=== PATIENT | male | born 1965 | race Caucasian/White ===

== ENCOUNTER 2016-10-23 17:28 | Inpatient (IN) ==
[2016-10-23] MEDS ORDERED: ASPIRIN PO STA (17:46)
[2016-10-23 18:05] LABS: MANUAL DIFF NEEDED? NO
[2016-10-23 18:08] LABS: BASO% 0.2 % (0.0-0.8); EOS# 0.06 X1000 (0.0-0.7); EOS% 0.7 % (0.0-10.0); HEMATOCRIT 40.3 % (42.0-52.0); HEMOGLOBIN 14.1 g/dL (14.0-18.0); LYMPH% 19.9 % (20.5-51.1); MCH 29.1 PG (27-31); MCV 83.1 FL (81-99); MONO# 0.78 X1000 (0.11-0.59); MONO% 9.7 % (1.7-9.3); MPV 10.1 FL (7.4-10.4); NEUT% 69.5 % (42.2-75.2); PLT 244 X1000 (130-400); RBC 4.85 XMIL (4.7-6.1)
--- NOTE | 2016-10-23 18:11 | ED EKG INTERP ---
EKG Interpretation - EKG Time of EKG reading by physician:: 17:42 EKG Read and Signed by:: Lynette Montelongo EKG Interpretation (*Must complete 3 of following elements*): Abnormal ( Nonspecific ST abnormality) Rate: 116 Rhythm: Sinus tachycardia Attestation - Scribe Verification/Attestation Scribe:: Nael Kim Acting as Scribe for:: Lynette Montelongo Scribe documention review:: This chart was documented by a scribe and accurately reflects the service the provider performed and the decisions made by the provider.
[2016-10-23 18:35] LABS: INR 1.05; PROTIME 11.1 Seconds (9.2-11.7); PTT 29.9 Seconds (22.0-36.0)
[2016-10-23 18:38] LABS: ALBUMIN 4.5 g/dL (3.5-5.0); MAGNESIUM 1.9 mg/dL (1.5-2.7); POTASSIUM 3.8 mmol/L (3.5-5.1); TOTAL BILIRUBIN 0.44 mg/dL (0.20-1.00); TOTAL PROTEIN 7.1 g/dL (6.3-8.3)
[2016-10-23] MEDS ORDERED: ADENOCARD ONE (19:31)
[2016-10-23] MEDS ORDERED: NS 1,000 ML ONE (19:33)
[2016-10-23] MEDS ORDERED: CARDIZEM ONE (19:36)
[2016-10-23] MEDS ORDERED: ADENOCARD IV ONE (19:40)
[2016-10-23] MEDS ORDERED: CARDIZEM IV ONE (19:41)
--- NOTE | 2016-10-23 19:44 | ED EKG INTERP ---
EKG Interpretation - EKG Time of EKG reading by physician:: 19:31 EKG Read and Signed by:: Arnold Haynes EKG Interpretation (*Must complete 3 of following elements*): Abnormal ( Nonspecific intraventricular block) Rate: 236 Rhythm: Wide QRS tachycardia Attestation - Scribe Verification/Attestation Scribe:: Nael Kim Acting as Scribe for:: Arnold Haynes Scribxavier documention review:: This chart was documented by a scribe and accurately reflects the service the provider performed and the decisions made by the provider.
[2016-10-23] MEDS ORDERED: CARDIZEM 100 MG/NS 100 ML IV SCH (19:45)
--- NOTE | 2016-10-23 19:45 | ED EKG INTERP ---
EKG Interpretation - EKG Time of EKG reading by physician:: 19:32 EKG Read and Signed by:: Arnold Haynes EKG Interpretation (*Must complete 3 of following elements*): Abnormal ( Nonspecific T wave abnormality) Rate: 134 Rhythm: Sinus tachycardia Attestation - Scribe Verification/Attestation Scribe:: Nael Kim Acting as Scribe for:: Arnold Haynes Scribxavier documention review:: This chart was documented by a scribe and accurately reflects the service the provider performed and the decisions made by the provider.
[2016-10-23] MEDS ORDERED: LOPRESSOR 10 MG in NS 50 ML IV ONE (19:53)
[2016-10-23] MEDS ORDERED: MORPHINE IV PRN (19:55)
[2016-10-23] MEDS ORDERED: ZOFRAN IV PRN (19:55)
[2016-10-23] MEDS ORDERED: NS 1,000 ML IV ONE (19:55)
[2016-10-23] MEDS ORDERED: NS 1,000 ML IV SCH (20:00)
[2016-10-23] MEDS: LOPRESSOR PO SCH (21:57)
[2016-10-23] MEDS ORDERED: TYLENOL PO PRN (23:23)
[2016-10-23] MEDS ORDERED: AMBIEN PO PRN (23:25)
[2016-10-24] MEDS: NS 1,000 ML IV SCH ×5 (00:08→20:46)
--- NOTE | 2016-10-24 01:52 | HISTORY AND PHYSICAL ---
CHIEF COMPLAINT: Palpitations, chest pain. HISTORY OF PRESENT ILLNESS: A 51-year-old male with no medical history presenting with intermittent chest pain for the last week off and on, worse today. He felt spontaneous heart rate increasing associated with shortness of breath and chest pain which prompted his evaluation. He usually has this problem about once a month. Obviously has been increasing in frequency since he was in the hospital off and on for the last 7 days. Usually spontaneously resolves. Apparently, he has had workup before including a cardiac catheterization but he says that was 10 or 15 years ago which was negative. In the ER, he was found to have SVT in the 200s. He was given Lopressor and then started on a Cardizem drip. It spontaneously resolved. We switched him to Lopressor and he is in a sinus rhythm now. He received adenosine, Cardizem, and metoprolol. PAST MEDICAL HISTORY: Denies. PAST SURGICAL HISTORY: He has had multiple knee surgeries, TKAs, and a right shoulder repair. SOCIAL HISTORY: No tobacco or ethanol. 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 Denies alcohol or tobacco. ALLERGIES: Sulfa. FAMILY HISTORY: His father had a massive heart attack at 50, I think is . REVIEW OF SYSTEMS: Negative times 12 systems. PHYSICAL EXAMINATION: VITAL SIGNS: Blood pressure 153/109, heart rate of 99, respiratory rate 18, temperature 98.2. GENERALLY: Well-developed male in no acute distress. HEENT: Head exam was normocephalic, atraumatic. Eye exam: Pupils equal, round, reactive to light. Extraocular movements were intact. Ear, nose and throat exam: He had moist mucous membranes. NECK: Supple. CARDIOVASCULAR: Regular rate and rhythm. No murmurs, gallops, or rubs. PULMONARY: Bilateral breath sounds clear to auscultation. GASTROINTESTINAL: Soft, nontender, nondistended. Bowel sounds are positive. EXTREMITIES: No clubbing or cyanosis. LYMPHATIC: No peripheral edema. NEUROLOGICAL: Nonfocal. Cranial nerves II through XII are grossly intact. MUSCULOSKELETAL: Exam was 5/5 in all 4 extremities. LABORATORY DATA: Creatinine 1.3. ALT was mildly elevated at 52. PROBLEM LIST: This is a 51-year-old male who presented with spontaneous supraventricular tachycardia and chest pain. 1. Supraventricular tachycardia. He spontaneously resolved. We will continue on Lopressor and follow. Monitor on telemetry and trend out serial cardiac enzymes. Obtain cardiology consult. Obtain echo in the morning. Check a TSH level and follow. Hopefully can discharge in next 24 hours if he stabilizes. 2. Mild elevation in liver enzymes. We will repeat and monitor. DISPOSITION: Pending resolution of his SVT issues. Again, likely discharge in the next 24 hours.
[2016-10-24 03:45] LABS: HEMATOCRIT 38.8 % (42.0-52.0); HEMOGLOBIN 13.3 g/dL (14.0-18.0); MCH 29.1 PG (27-31); MCHC 34.3 g/dL (33-37); MCV 84.9 FL (81-99); MPV 9.9 FL (7.4-10.4); RBC 4.57 XMIL (4.7-6.1)
[2016-10-24] MEDS: LOPRESSOR PO SCH ×3 (04:12→20:46)
[2016-10-24 04:15] LABS: AGAP 12; ALKALINE PHOSPHATASE 61 U/L (32-122); BUN 10 mg/dL (8-22); CALCIUM 8.8 mg/dL (8.8-10.2); CHLORIDE 105 mmol/L (98-107); COSMO 284; DIRECT BILIRUBIN < 0.20 mg/dL (0.00-0.20); GOT 23 U/L (10-34); GPT 47 U/L (10-44); MAGNESIUM 2.2 mg/dL (1.5-2.7); SODIUM 143 mmol/L (136-145); TCO2 26 mmol/L (25-35); TOTAL PROTEIN 6.4 g/dL (6.3-8.3)
[2016-10-24] MEDS ORDERED: PNEUMOVAX 23 IM ONE (09:00)
--- NOTE | 2016-10-24 09:27 | Diag Imaging Result Document ---
PROCEDURE NAME: CHEST-2 VIEWS - 10/23/2016 TWO VIEWS OF THE CHEST: FINDINGS: The inspiration is somewhat suboptimal. The heart size and pulmonary vascularity are within normal limits, and the lungs are clear. There has been resection of the distal right clavicle since the previous study of 03/07/2015, otherwise, there has been no significant change. IMPRESSION: No evidence of acute disease.
[2016-10-24] MEDS: ASPIRIN EC PO SCH (10:06)
--- NOTE | 2016-10-24 12:33 | PROGRESS NOTE ---
DATE: 10/24/2016 SUBJECTIVE: This patient states that he is feeling better. He is not having palpitations at this moment or chest pain. He denies nausea, vomiting, diarrhea, or constipation. The patient states that he has been having palpitation, and he is feeling as though his heart is racing fast for the past 20 or 24 years, but the heart rate normalized with deep breathing. OBJECTIVE: Vital Signs: Temperature 98.1 degrees, pulse 73, respiratory rate 16, oxygen saturation 97% on room air. Blood pressure 115/74. HEENT: Head normocephalic. No trauma. PERRLA. Neck: Supple. No JVD. No masses. Central trachea. Chest: Clear to auscultation. No wheezing. No rales. Abdomen: Soft, nontender, nondistended. No hepatosplenomegaly. Cardiovascular: RRR. No murmurs. No gallops. No rubs. Extremities: No edema. No clubbing. No cyanosis. Neurological examination: The patient is alert and oriented x3. No focal neurological deficits. LABORATORY: WBC 6, hemoglobin 13.3, hematocrit 38.8, platelets 194. Sodium 143, potassium 4, chloride 105, bicarbonate 26, BUN 10, creatinine 1, glucose 96, calcium 8.8, magnesium 2.2. AST 23, ALT 47, alkaline phosphatase 61. Troponin 0.063 and 0.044. Albumin 4. TSH 3.3. ASSESSMENT AND PLAN: 1. Palpitations. He has been having this kind of problem for the past 24 years or so, likely related with supraventricular tachycardia that has been getting better with vagal maneuvers. Cardiology Department has been consulted. I will continue with the same treatment for now. 2. Deep vein thrombosis prophylaxis. This patient will be on Lovenox.
--- NOTE | 2016-10-24 13:47 | CONSULTATION ---
DATE OF CONSULTATION: 10/24/2016 INDICATION: SVT. HISTORY OF PRESENT ILLNESS: Mr. Abad is a 51-year-old white male with a history of SVT. Previously a patient of Dr. Lima'mariam but not having been to the clinic in 6 years or so. He presented for evaluation of heart racing that has been occurring over the last week or so. He had an episode in the ER with a heart rate well into the high 100s. He was initiated on diltiazem, adenosine and metoprolol and he had a conversion over into sinus rhythm. He has had no recurrence during this hospitalization. He did have some left-sided chest pain as well as arm pain associated with that. No shortness of breath. No syncope. PAST MEDICAL HISTORY: Significant for. 1. Normal cardiac catheterization. 2. Supraventricular tachycardia. SOCIAL HISTORY: No current tobacco use. No alcohol. FAMILY HISTORY: Father possibly had a heart attack in his 50s. REVIEW OF SYSTEMS: A 10-system review of systems is negative except for those things mentioned in HPI. PHYSICAL EXAMINATION: Vital signs: Patient is afebrile. Heart rate is 73, blood pressure 115/74. General: He is in no acute distress. HEENT: Oropharynx is moist. Normal dentition. Eye examination shows pink conjunctivae. White sclerae. Neck: Examination shows no obvious thyromegaly or thyroid tenderness. Cardiovascular: He is in a regular rate and rhythm. He has no obvious murmurs. He has no S3. No lower extremity edema. Chest: Clear bilaterally. No increased work of breathing. Abdomen: Soft, nontender, nondistended. No obvious organomegaly. Skin Exam: Warm and dry throughout without any rashes. Neurological: He is moving all extremities well. Cranial nerves 2-12 are intact without any sensation deficits. Psychiatric: He is alert, oriented, pleasant. He has a normal mood and affect. PERTINENT DATA: EKG as described above in the HPI. It was consistent with a narrow complex tachycardia. White count is 6, hematocrit 38.8, platelet count is 194,000. Sodium is 143, potassium 4, BUN is 10, creatinine is 1. His cardiac enzymes are negative. His TSH is normal. His echocardiogram is currently pending. He did have a chest x-ray performed demonstrating no evidence of any acute disease. ASSESSMENT: Supraventricular tachycardia. PLAN: Patient may be discharged home today if his echocardiogram is unremarkable. I have changed his metoprolol to 50 b.i.d. He can follow up with Dr. Lima and at that time there can be a consideration on whether the patient will be referred over to the EP service for consideration for potential ablation. I think he would be a reasonable candidate for that procedure. Please contact us with further questions.
--- NOTE | 2016-10-24 14:39 | ECHO REPORT ---
ORDER DATE: 10/24/2016 INDICATION: Chest pain. Supraventricular tachycardia. FINDINGS: 1. Right atrium is normal size at 3.4. 2. Trace tricuspid regurgitation. The RV systolic pressure was unable to be measured. 3. Normal RV size and systolic function. 4. No significant pulmonic insufficiency. 5. Mild left atrial enlargement at 4.9 cm. 6. No mitral valve prolapse. Trace mitral regurgitation. 7. Normal LV size, end-diastolic dimension of 5 cm. Normal wall thicknesses with a posterior and interventricular septal wall thickness of 1 cm each. Normal LV systolic function. Calculated EF of 64% with normal wall motion. 8. The aortic valve opens well. No evidence of stenosis. The valve appears trileaflet. There is no evidence of insufficiency. 9. The aorta appears normal in visualized segments. 10. No pericardial effusion seen.
[2016-10-25 06:04] LABS: MANUAL DIFF NEEDED? NO
[2016-10-25 06:08] LABS: BASO% 0.2 % (0.0-0.8); EOS# 0.15 X1000 (0.0-0.7); EOS% 2.3 % (0.0-10.0); HEMATOCRIT 42.1 % (42.0-52.0); HEMOGLOBIN 14.2 g/dL (14.0-18.0); LYMPH# 1.68 X1000 (1.2-3.4); LYMPH% 25.7 % (20.5-51.1); MCH 28.5 PG (27-31); MCHC 33.7 g/dL (33-37); MCV 84.5 FL (81-99); MONO# 0.61 X1000 (0.11-0.59); MONO% 9.3 % (1.7-9.3); NEUT% 62.5 % (42.2-75.2); PLT 226 X1000 (130-400); RBC 4.98 XMIL (4.7-6.1)
[2016-10-25 06:46] LABS: AGAP 11; BUN 11 mg/dL (8-22); CALCIUM 9.3 mg/dL (8.8-10.2); CHLORIDE 104 mmol/L (98-107); COSMO 282; POTASSIUM 4.7 mmol/L (3.5-5.1); SODIUM 142 mmol/L (136-145); TCO2 27 mmol/L (25-35)
[2016-10-25] MEDS: LOPRESSOR PO SCH (07:44)
[2016-10-25] MEDS: ASPIRIN EC PO SCH (07:44)
[2016-10-25 08:37] VITALS: BP 114/75
[2016-10-25] MEDS ORDERED: FLUZONE QUAD 2016-2017 SYRINGE IM ONE (09:00)
[2016-10-25] MEDS ORDERED: LOVENOX SUBQ SCH (09:00)
--- NOTE | 2016-10-26 05:01 | DISCHARGE SUMMARY ---
ADMISSION DATE: 10/23/2016 DISCHARGE DATE: 10/25/2016 DISCHARGE DIAGNOSES: Supraventricular tachycardia - resolved. CONSULTATIONS: Yo Reyna MD - Cardiology Department. HOSPITAL COURSE: A 51 years male with history of supraventricular tachycardia in the past, came to the emergency department with a chief complaint of intermittent chest pain and palpitation that has been for the last week happening on and off, but as per the patient it was worse at the day of the admission. He felt spontaneous heart rate increasing, associated with shortness of breath and chest pain, and some left arm discomfort. He said that usually this probably happened every month and resolve with a deep breath and sometimes spontaneously. He was evaluated in the emergency department and admitted to the medical floor with telemetry. Dr. Yo Reyna evaluated this patient and also evaluated an echocardiogram that did not show any significant abnormalities. Dr. Yo Reyna adjusted his medications. He put this patient on metoprolol tartrate 50 mg p.o. twice a day. This patient was improving. No more signs or symptoms of supraventricular tachycardia. This patient will be discharged today with followup by Cardiology Department, Dr. Lima. At the moment of discharge, this patient was in stable medical condition, tolerating p.o. and ambulating. PHYSICAL EXAMINATION: Vitals Signs: Temperature 97.9 degrees, pulse 63, respiratory rate 16, blood pressure 114/75, O2 saturation 99 on room air. HEENT: Head normocephalic. No trauma. Pupils equal, round, and reactive to light and accommodation. Neck: Supple. No jugular venous distention. No masses. Central trachea. Chest: Clear to auscultation. No wheezing. No rales. Cardiovascular: Regular rate and rhythm. No murmurs. No gallops. No rubs. Abdomen: Soft, nontender, nondistended. No hepatosplenomegaly. Extremities: No edema. No clubbing. No cyanosis. Neurological Examination: The patient was alert and oriented x3. No focal neurological deficits. LABORATORY: WBC 6.5, hemoglobin 14.2, hematocrit 42.1 platelets 226,000. Sodium 142, potassium 4.7, chloride 104, bicarbonate 27. BUN 11, creatinine 1.1, glucose 94, calcium 9.3. DISCHARGE MEDICATIONS: 1. Aspirin 81 mg p.o. daily. 2. Lopressor 50 mg p.o. b.i.d. TIME DISCHARGING THIS PATIENT: Was 35 minutes. MTDD
--- NOTE | 2016-10-26 08:14 | EKG Report ---
Test Performed on : 10/23/2016 7:31:18 PM Test Reason : cp Blood Pressure : / mmHG Vent. Rate : 236 BPM Atrial Rate : 117 BPM P-R Int : 000 ms QRS Dur : 186 ms QT Int : 182 ms P-R-T Axes : 000 041 000 degrees QTc Int : 360 ms Wide QRS tachycardia. Nonspecific intraventricular block Abnormal ECG No previous ECGs available Unconfirmed Result
--- NOTE | 2016-10-26 08:21 | EKG Report ---
Test Performed on : 10/23/2016 5:42:50 PM Test Reason : CP Blood Pressure : / mmHG Vent. Rate : 116 BPM Atrial Rate : 116 BPM P-R Int : 146 ms QRS Dur : 078 ms QT Int : 310 ms P-R-T Axes : 043 022 041 degrees QTc Int : 430 ms Sinus tachycardia. Nonspecific ST abnormality Abnormal ECG No previous ECGs available Unconfirmed Result
--- NOTE | 2016-10-26 08:33 | EKG Report ---
Test Performed on : 10/23/2016 7:32:10 PM Test Reason : No order in meditech/Rhythm Change Blood Pressure : / mmHG Vent. Rate : 134 BPM Atrial Rate : 134 BPM P-R Int : 130 ms QRS Dur : 080 ms QT Int : 282 ms P-R-T Axes : 052 021 080 degrees QTc Int : 421 ms Sinus tachycardia. Nonspecific T wave abnormality Abnormal ECG When compared with ECG of 23-OCT-2016 19:31, (Unconfirmed) Sinus rhythm. has replaced Wide QRS tachycardia. Vent. rate has decreased BY 102 BPM Unconfirmed Result
== END 2016-10-25 11:08 | disposition home or self-care (01) | DRG 310 ==
LOC: ED 17:28 → 4N 17:29
PROVIDERS: ADMIT Internal Medicine; ATTEND Internal Medicine
DX: I47.1 Supraventricular tachycardia (principal); R74.8 Abnormal levels of other serum enzymes; Z96.659 Presence of unspecified artificial knee joint; Z82.49 Family history of ischemic heart disease and other diseases of the circulatory system; Z23 Encounter for immunization
CPT/HCPCS: 71020; 80048; 80053; 80076; 82550; 83735; 84443; 84484; 85025; 85027; 85379; 85610; 85730; 93005; 93306; 94761; J0153; J1650; J7030; Q2038

== ENCOUNTER 2016-10-27 03:45 | Emergency (ER) ==
--- NOTE | 2016-10-27 04:01 | ED EKG INTERP ---
EKG Interpretation - EKG Time of EKG reading by physician:: 03:49 EKG Read and Signed by:: Romulo Rico Jr EKG Interpretation (*Must complete 3 of following elements*): Abnormal (ST & T wave abnormality, consider lateral ischemia) Rate: 179 Rhythm: Supraventricular tachycardia Attestation - Scribe Verification/Attestation Scribe:: Nael Kim Acting as Scribe for:: Romulo Rico Jr Scribe documention review:: This chart was documented by a scribe and accurately reflects the service the provider performed and the decisions made by the provider.
[2016-10-27 04:07] LABS: MANUAL DIFF NEEDED? NO
[2016-10-27 04:13] LABS: BASO% 0.3 % (0.0-0.8); EOS# 0.13 X1000 (0.0-0.7); EOS% 1.7 % (0.0-10.0); HEMATOCRIT 45.7 % (42.0-52.0); HEMOGLOBIN 15.7 g/dL (14.0-18.0); LYMPH# 2.51 X1000 (1.2-3.4); LYMPH% 32.9 % (20.5-51.1); MCH 28.4 PG (27-31); MCHC 34.4 g/dL (33-37); MCV 82.6 FL (81-99); MONO# 0.57 X1000 (0.11-0.59); MONO% 7.5 % (1.7-9.3); MPV 9.7 FL (7.4-10.4); NEUT% 57.6 % (42.2-75.2); PLT 251 X1000 (130-400); RBC 5.53 XMIL (4.7-6.1)
[2016-10-27 04:29] LABS: AGAP 11; ALBUMIN 4.7 g/dL (3.5-5.0); ALKALINE PHOSPHATASE 72 U/L (32-122); BUN 14 mg/dL (8-22); CALCIUM 9.6 mg/dL (8.8-10.2); CHLORIDE 102 mmol/L (98-107); CK PROFILE 146 U/L (24-204); COSMO 284; GOT 29 U/L (10-34); GPT 57 U/L (10-44); POTASSIUM 4.7 mmol/L (3.5-5.1); SODIUM 142 mmol/L (136-145); TCO2 29 mmol/L (25-35); TOTAL PROTEIN 7.5 g/dL (6.3-8.3)
--- NOTE | 2016-10-27 04:34 | PROVIDER DOCUMENTATION ---
HPI-Cardiac General - General Chief Complaint: Palpitations Stated Complaint: HEART RACING Time Seen by Provider: 10/27/16 03:55 Source: patient, family Allergies/Adverse Reactions: Patient Allergies Allergy/AdvReac Type Severity Reaction Status Date / Time Sulfa (Sulfonamide Allergy HIVES Verified 10/27/16 03:59 Antibiotics) Home Medications: Home Medication List Medication Instructions Recorded Confirmed Last Taken Type Metoprolol [Lopressor] 50 mg PO BID #120 tablet 10/25/16 10/27/16 10/26/16 19: 00 Rx Aspirin EC 81 mg PO QAM 10/27/16 10/27/16 10/26/16 07:00 History - History of Present Illness-Cardiac Nature of Presenting Problem: 51 y/o WM with a longstanding h/o SVT that presents to the ED with a 4 hr h/o palpations. Pt reports having 4 episodes of " heart racing." States some substernal chest pain that resolved, spontaneous. States that he has been dealing with this issues his entire life. Pt seen at [facility] ED recently where he was given Beta-Rosario as prescription. States he has been in contact with Dr. Powell's office for followup, but has not been given an appt. Location: reports: substernal Quality of Pain: reports: sharp (resolved) Onset/Duration: 4-6 hours ago Timing: gone now Context/Activities at Onset: reports: none Modifying Factors: improves with: nothing History of arrythmia: reports: SVT Recent use of:: reports: no stimulants Nitro Today/Relief: reports: no nitro taken today Aspirin Treatment Today: reports: no aspirin today Prior Chest Pain/Cardiac Workup: reports: non-cardiac Associated Symptoms: reports: denies symptoms Review of Systems - Adult - REVIEW OF SYSTEMS - ADULT Constitutional: reports: no symptoms reported Eyes: reports: no symptoms reported Ears, Nose, Mouth & Throat: reports: no symptoms reported Cardiovascular: reports: chest pain, palpitations Respiratory: reports: no symptoms reported Gastrointestinal: reports: no symptoms reported Genitourinary: reports: no symptoms reported Musculoskeletal: reports: no symptoms reported Integumentary: reports: no symptoms reported Neurological: reports: no symptoms reported Psychiatric: reports: no symptoms reported Endocrine: reports: no symptoms reported Hematologic/Lymphatic: reports: no symptoms reported Allergic/Immunologic: reports: no symptoms reported Past History - Adult - PAST MEDICAL HISTORY-ADULT Review of Records: reports: Old Records Reviewed, Nursing Assessment Review, Medications Reviewed Major Childhood Illnesses: reports: denies history Cardiovascular: reports: palpitations Respiratory: reports: denies history Gastrointestinal: reports: denies history Obstetrical/Gynecological: reports: denies history Genitourinary: reports: denies history Musculoskeletal: reports: denies history Neurological: reports: denies history Psychiatric: reports: denies history Endocrine/Immune: reports: denies history - PRIOR SURGERIES/PROCEDURES Surgical/Procedure History: reports: hernia repair, orthopedic (extremity) - IMMUNIZATION STATUS Childhood Immunizations: See Nurse Assessment Flu Vaccine: See Nurse Assessment - FAMILY HISTORY Family History: reviewed, not pertinent - SOCIAL HISTORY Smoking: cigar Substance Use: none/never Alcohol Use Frequency: rarely Number of drinks per typical drinking period:: 2 drinks Living Situation: family Physical Exam-General - PHYSICAL EXAM-ADULT Initial Vital Signs Reviewed: Yes - CONSTITUTIONAL General Appearance: appears well, alert, no apparent distress. negative: slow to respond, obtunded - EYES Eyes: PERRL/EOMI, pink conjunctivae. negative: pale conjunctivae, photophobia, sclera injected, scleral icterus - HEAD, EARS, NOSE, MOUTH & THROAT HENMT: normocephalic/atraumatic, moist mucous membranes, normal ENT inspection. negative: pharyngeal erythema, tonsillar exudate - NECK Neck: non-tender. negative: C-spine tenderness - RESPIRATORY Respiratory: chest non-tender, lungs clear, normal breath sounds. negative: crackles, rales, rhonchi, stridor, wheezing - CARDIOVASCULAR Cardiovascular: normal peripheral pulses, regular rate, rhythm, no murmur. negative: tachycardia - CHEST (BREASTS) Chest/Breast: no tenderness - GASTROINTESTINAL (ABDOMEN) Abdominal Exam: normal bowel sounds, non tender, soft. negative: guarding, rigid, rebound, tenderness - GENITOURINARY Male Genitalia: deferred Rectal Exam: deferred - LYMPHATIC Lymphatic: no adenopathy - MUSCULOSKELETAL Back Exam: normal inspection. negative: muscle spasm, swelling Extremity: normal range of motion, non-tender, normal gait, other. negative: swelling, tenderness - SKIN Integumentary: normal color, normal turgor, warm/dry. negative: swelling, tenderness - NEUROLOGIC Neurologic: pot tender II-XII nml as tested, grossly normal, no motor/sensory deficits . negative: facial droop, focal weakness, motor weakness, sensory deficit - PSYCHIATRIC Psych/Mental Status: normal mood/affect, normal thought content, normal thought process, oriented x 3. negative: anxious Progress - EKG 2 Time of EKG reading by physician:: 04:06 EKG Read and Signed by:: Romulo Rico Jr EKG Interpretation (*Must complete 3 of following elements*): Normal Rate: 81 Rhythm: normal sinus rhythm [place]: normal QRS: normal DE Interval: normal ST Wave: normal Departure - Departure Time of Disposition Order: 04:43 DIAGNOSIS: SVT (supraventricular tachycardia) Disposition: HOME 01 Certified Medical Emergency: Emergent Condition: Good Additional Instructions: PT TO CONTACT DR POWELL'S OFFICE IN AM ED Follow Up Instructions: You have been treated by a care provider in the Emergency Department. These instructions are being provided to you so you can have an understanding of how to care for yourself upon discharge. Upon discharge from the Emergency Department, you are responsible for making arrangements for follow-up care by a physician of your choice. Take all prescribed medications as directed. Return to the Emergency Department immediately for any new or worsening symptoms. You may call the Physician Referral phone number at [phone] to obtain a list of Physicians who are taking new patients.
[2016-10-27 04:45] VITALS: BP 124/98
--- NOTE | 2016-10-27 05:46 | EKG Report ---
Test Performed on : 10/27/2016 03:49:24 AM Test Reason : "HEART RACING" Blood Pressure : / mmHG Vent. Rate : 179 BPM Atrial Rate : 220 BPM P-R Int : 000 ms QRS Dur : 080 ms QT Int : 266 ms P-R-T Axes : 000 049 258 degrees QTc Int : [address] & T wave abnormality, consider inferior ischemia Abnormal ECG When compared with ECG of 23-OCT-2016 19:32, ST more depressed in Anterior leads T wave inversion now evident in Inferior leads Unconfirmed Result
== END 2016-10-27 04:53 | disposition home or self-care (01) ==
LOC: ED 03:45
DX: I47.1 Supraventricular tachycardia (principal); R94.31 Abnormal electrocardiogram [ECG] [EKG]; R00.2 Palpitations; R07.89 Other chest pain; F17.290 Nicotine dependence, other tobacco product, uncomplicated; Z79.82 Long term (current) use of aspirin; Z79.899 Other long term (current) drug therapy
CPT/HCPCS: 80053; 82550; 84484; 85025; 93005